=== PATIENT | male | born 1950 | race African-American/Black ===

== ENCOUNTER 2018-07-26 23:33 | Observation (INO) | payer MEDICARE, OTHER ==
[~2018-07-26] VITALS: Ht 167.6 cm; Wt 91.9 kg
--- NOTE | 2018-07-26 23:43 | PHYS DOC ---
Adult General Chief Complaint Chief Complaint: NAUSEA/VOMITING/DIARRHA HPI HPI Patient is a 67 year old male who presents with chest and abdominal pain. Patient states he had sudden onset of sternal chest pain about 1-1/2 hours prior to presentation. He was at rest when the pain started. Pain has been constant since then but has waxed and waned in intensity. Pain does not radiate. There are no aggravating or alleviating factors. Patient also complains of diffuse abdominal pain and distention. He has been having normal bowel movements. No fever, chills, cough. Denies urinary symptoms. He has had some nausea and emesis as well. The pain causes him to feel short of breath. He denies prior history of coronary artery disease. He does have known hypertension. Patient has a history of GERD and he feels the symptoms are similar to prior GERD symptoms. He was previously prescribed some antacid medication but stopped taking it. Review of Systems Review of Systems Constitutional: Denies fever Eyes: Denies change in visual acuity HENT: Denies nasal congestion Respiratory: Denies cough Cardiovascular: No additional information not addressed in HPI GI: + abd pain, nausea, vomiting : Denies dysuria Musculoskeletal: Denies back pain Integument: Denies rash or skin lesions Neurologic: Denies focal neuro complaints All other systems were reviewed and found to be within normal limits, except as documented in this note. Current Medications Current Medications Current Medications Medications (Trade) Dose Ordered Sig/Juana Start Time Stop Time Status Last Admin Dose Admin Acetaminophen (Tylenol) 650 mg PRN Q4HRS PRN 07/27/18 02:00 07/28/18 01:59 Aspirin (Children'S Aspirin) 324 mg 1X ONCE 07/27/18 00:30 07/27/18 00:31 DC 07/27/18 00:16 324 MG Famotidine (Pepcid Vial) 20 mg 1X ONCE 07/27/18 01:00 07/27/18 01:01 DC 07/27/18 01:03 20 MG Morphine Sulfate (Morphine Sulfate) 4 mg PRN Q2HR PRN 07/27/18 02:00 07/28/18 01:59 Multi-Ingredient Mouthwash/Gargle (Gi Cocktail) 20 ml 1X ONCE 07/27/18 00:00 07/27/18 00:08 DC 07/26/18 23:53 20 ML Ondansetron HCl (Zofran) 4 mg PRN Q8HRS PRN 07/27/18 02:00 07/28/18 01:59 Sodium Chloride 500 ml @ 500 mls/hr 1X ONCE 07/27/18 01:30 07/27/18 02:29 DC 07/27/18 01:30 500 MLS/HR Allergies Allergies Allergies Coded Allergies Type Severity Reaction Last Updated Verified No Known Drug Allergies 07/27/18 No Physical Exam Physical Exam Constitutional: Well developed, well nourished, no acute distress, non-toxic appearance HENT: Normocephalic, atraumatic, bilateral external ears normal, oropharynx moist Eyes: PERRLA, EOMI, conjunctiva normal Neck: Normal range of motion, no tenderness Cardiovascular:Heart rate regular rhythm, no murmur Lungs & Thorax: Bilateral breath sounds clear to auscultation Abdomen: Bowel sounds normal, soft Skin: Warm, dry, no erythema Extremities: No edema Neurologic: Alert and oriented X 3 Psychologic: Affect normal Current Patient Data Vital Signs Vital Signs Date Time Temp Pulse Resp B/P (MAP) Pulse Ox O2 Delivery O2 Flow Rate FiO2 07/27/18 01:43 88 18 168/77 (107) 98 Room Air 07/26/18 23:38 97.4 97.4 Lab Values Laboratory Tests Test 07/26/18 23:57 07/27/18 00:35 White Blood Count 10.1 x10^3/uL (4.0-11.0) Red Blood Count 5.71 x10^6/uL (4.30-5.70) H Hemoglobin 12.9 g/dL (13.0-17.5) L Hematocrit 37.1 % (39.0-53.0) L Mean Corpuscular Volume 65 fL (79-100) L Mean Corpuscular Hemoglobin 23 pg (25-35) L Mean Corpuscular Hemoglobin Concent 35 g/dL (31-37) Red Cell Distribution Width 21.9 % (11.5-14.5) H Platelet Count 158 x10^3/uL (140-400) Neutrophils (%) (Auto) 90 % (31-73) H Lymphocytes (%) (Auto) 3 % (24-48) L Monocytes (%) (Auto) 6 % (0-9) Eosinophils (%) (Auto) 1 % (0-3) Basophils (%) (Auto) 1 % (0-3) Neutrophils # (Auto) 9.1 x10^3uL (1.8-7.7) H Lymphocytes # (Auto) 0.3 x10^3/uL (1.0-4.8) L Monocytes # (Auto) 0.6 x10^3/uL (0.0-1.1) Eosinophils # (Auto) 0.1 x10^3/uL (0.0-0.7) Basophils # (Auto) 0.1 x10^3/uL (0.0-0.2) Segmented Neutrophils % 93 % (35-66) H Band Neutrophils % 1 % (0-9) Lymphocytes % 3 % (24-48) L Monocytes % 3 % (0-10) Platelet Estimate Adequate (ADEQUATE) Hypochromasia Mod Anisocytosis Mod Microcytosis Marked Target Cells Occ Prothrombin Time 14.1 SEC (11.7-14.0) H Prothrombin Time INR 1.1 (0.8-1.1) PTT 27 SEC (24-38) Sodium Level 138 mmol/L (136-145) Potassium Level 3.9 mmol/L (3.5-5.1) Chloride Level 100 mmol/L (98-107) Carbon Dioxide Level 27 mmol/L (21-32) Anion Gap 11 (6-14) Blood Urea Nitrogen 21 mg/dL (8-26) Creatinine 2.0 mg/dL (0.7-1.3) H Estimated GFR (Cockcroft-Gault) 33.4 Glucose Level 306 mg/dL (70-99) H Calcium Level 9.6 mg/dL (8.5-10.1) Total Bilirubin 1.1 mg/dL (0.2-1.0) H Direct Bilirubin 0.3 mg/dL (0.0-0.2) H Aspartate Amino Transferase (AST) 12 U/L (15-37) L Alanine Aminotransferase (ALT) 18 U/L (16-63) Alkaline Phosphatase 66 U/L (46-116) Troponin I Quantitative < 0.017 ng/mL (0.000-0.055) RZ-Sgt-M-Type Natriuretic Peptide 11 pg/mL (0-124) Total Protein 8.4 g/dL (6.4-8.2) H Albumin 4.2 g/dL (3.4-5.0) Lipase 171 U/L (73-393) Urine Collection Type Unknown Urine Color Yellow Urine Clarity Clear Urine pH 5.5 Urine Specific [place] 1.020 Urine Protein Negative mg/dL (NEG-TRACE) Urine Glucose (UA) >=1000 mg/dL (NEG) Urine Ketones (Stick) Trace mg/dL (NEG) Urine Blood Negative (NEG) Urine Nitrite Negative (NEG) Urine Bilirubin Negative (NEG) Urine Urobilinogen Dipstick 0.2 mg/dL (0.2 mg/dL) Urine Leukocyte Esterase Negative (NEG) Urine RBC 0 /HPF (0-2) Urine WBC Occ /HPF (0-4) Urine Squamous Epithelial Cells Occ /LPF Urine Bacteria 0 /HPF (0-FEW) Laboratory Tests 07/26/18 23:57 Laboratory Tests 07/26/18 23:57 EKG EKG No STEMI Interpretation Time: 00:01 Radiology/Procedures Radiology/Procedures CXR: no acute findings Course & Med Decision Making Course & Med Decision Making Pertinent Labs and Imaging studies reviewed. (See chart for details) Patient is seen immediately on arrival to his room. Cardiac workup ordered. GI cocktail, ASA, morphine for pain. 00:30: Patient given GI cocktail but does have emesis immediately after. He was given morphine and states pain is improved but he does continue to have pain. Will give IV Pepcid. Workup is still pending. 01:50: All results are reviewed. The patient is noted to have elevated creatinine. I did ask the patient if he has a prior history of this. Patient states he had previously been taken off metformin due to some affect on the kidney. No old values available for comparison in the EMR. Troponin is not elevated. EKG is nonacute. Given the patient's history of diabetes, high blood pressure, and age, he will be admitted for cardiac rule out and observation. Bridge orders are placed. EKGs and troponin will be trended. Of note, the patient was given ASA in the ER. He was also given IV morphine but this did not significantly relieve his pain symptoms. Pain was relieved after patient was given IV pepcid so presentation may be 2/2 GERD. He does have some sx of GERD and prior hx. HEART Score: Slightly suspicious: 1 Normal EK Age > 65: 2 Risk Factors: (DM, HTN): 1 Trop: 0 Total 4-5. Shayla Disclaimer Dragkenneth Disclaimer This electronic medical record was generated, in whole or in part, using a voice recognition dictation system. Departure Departure Disposition: 09 ADMITTED INPATIENT Condition: MELISSA THOMASON DO Jul 26, 2018 23:43
[2018-07-27] MEDS ORDERED: LIDO:MAALOX 1:1 20 ML SINGLE DOSE. PO ONE
[2018-07-27 00:06] LABS: BASO # 0.1 x10^3/uL (0.0-0.2); BASO % 1 % (0-3); EOS # 0.1 x10^3/uL (0.0-0.7); EOS % 1 % (0-3); HEMATOCRIT 37.1 % (39.0-53.0); HEMOGLOBIN 12.9 g/dL (13.0-17.5); LYMPH # 0.3 x10^3/uL (1.0-4.8); LYMPH % 3 % (24-48); MEAN CORPUSCULAR HEMOGLOBIN 23 pg (25-35); MEAN CORPUSCULAR HGB CONC 35 g/dL (31-37); MEAN CORPUSCULAR VOLUME 65 fL (79-100); MONO # 0.6 x10^3/uL (0.0-1.1); MONO % 6 % (0-9); NEUT # 9.1 x10^3uL (1.8-7.7); NEUT % 90 % (31-73); PLATELET COUNT 158 x10^3/uL (140-400); RED BLOOD COUNT 5.71 x10^6/uL (4.30-5.70); RED CELL DISTRIBUTION WIDTH 21.9 % (11.5-14.5); WHITE BLOOD COUNT 10.1 x10^3/uL (4.0-11.0)
[2018-07-27 00:15] LABS: PROTHROMBIN TIME PATIENT 14.1 SEC (11.7-14.0)
[2018-07-27 00:16] LABS: CALCIUM 9.6 mg/dL (8.5-10.1); GFR 33.4; POTASSIUM 3.9 mmol/L (3.5-5.1)
[2018-07-27 00:21] LABS: ALBUMIN 4.2 g/dL (3.4-5.0); DIRECT BILIRUBIN 0.3 mg/dL (0.0-0.2); TOTAL BILIRUBIN 1.1 mg/dL (0.2-1.0); TOTAL PROTEIN 8.4 g/dL (6.4-8.2)
[2018-07-27] MEDS ORDERED: MORPHINE SULFATE 4 MG/ML VIAL. IV ONE (00:30)
[2018-07-27] MEDS ORDERED: ASPIRIN CHEWABLE 81 MG TABLET. PO ONE (00:30)
[2018-07-27 00:39] LABS: % BANDS 1 % (0-9); % LYMPHS 3 % (24-48); % MONOS 3 % (0-10); % SEGS 93 % (35-66); ANISOCYTOSIS MOD; HYPOCHROMIA MOD; MICROCYTOSIS MARKED; PLT ESTIMATE ADEQUATE (ADEQUATE); TARGET CELLS OCC
[2018-07-27 00:46] LABS: BILIRUBIN,URINE NEGATIVE (NEG); CLARITY,URINE CLEAR; COLOR,URINE YELLOW; NITRITE,URINE NEGATIVE (NEG); PH,URINE 5.5; PROTEIN,URINE NEGATIVE (NEG-TRACE); UROBILINOGEN,URINE 0.2 mg/dL (0.2 mg/dL)
[2018-07-27 00:55] LABS: BACTERIA,URINE 0 /HPF (0-FEW); RBC,URINE 0 /HPF (0-2); SQUAMOUS EPITHELIAL CELL,UR OCC /LPF; WBC,URINE OCC /HPF (0-4)
[2018-07-27] MEDS ORDERED: ONDANSETRON PF 4 MG/2 ML VIAL. IV ONE (01:00)
[2018-07-27] MEDS ORDERED: FAMOTIDINE 20 MG/2 ML VIAL IVP ONE (01:00)
[2018-07-27] MEDS ORDERED: IV NORMAL SALINE 500ML BAG 500 ML IV ONE (01:30)
[2018-07-27] MEDS ORDERED: ACETAMINOPHEN 325 MG TABLET. PO PRN ×2 (02:00→10:15)
[2018-07-27] MEDS ORDERED: ONDANSETRON PF 4 MG/2 ML VIAL. IV PRN (02:00)
[2018-07-27] MEDS ORDERED: MORPHINE SULFATE 4 MG/ML VIAL. IV PRN (02:00)
--- NOTE | 2018-07-27 02:42 | EKG ---
[facility] [address] [place] [address] Test Date: 2018-07-26 Test Time: 23:59:42 Pat Name: SHAHNAZ ACOSTA Department: Room: Gender: M Comprehensive Ophthalmologist: : 1950 Requested By: MELISSA MURPHY Order Number: [id number] Reading MD: Hari Phelps Measurements Intervals [place] Rate: 82 P: 37 RI: 158 QRS: 4 QRSD: 76 T: 21 QT: 396 QTc: 465 Interpretive Statements SINUS RHYTHM LEFT ATRIAL ABNORMALITY ABNORMAL ECG No previous ECG available for comparison Electronically Signed On 07-28-2018 9:18:09 DIRECTOR CONTENT MARKETING by Hari Phelps
--- NOTE | 2018-07-27 03:09 | RAD ---
AP portable chest radiograph 07/27/2018 Clinical History: Chest pain. An AP erect portable digital radiograph of the chest was obtained. No previous studies are available for comparison. The cardiac silhouette is borderline enlarged. The thoracic aorta is mildly tortuous. No acute pulmonary infiltrate is seen. No pleural effusion or pneumothorax is noted. Degenerative changes are seen involving the thoracic spine. IMPRESSION: No acute abnormality is seen. Electronically signed by: Scooby Mosqueda MD (07/27/2018 3:06 AM) [id number]
[2018-07-27 03:15] VITALS: BP 140/71
[2018-07-27] MEDS ORDERED: LISI2.5T PO (03:47)
[2018-07-27] MEDS ORDERED: FOLI1TAB16 PO (03:47)
[2018-07-27] MEDS ORDERED: ACET325T9 PO (03:47)
[2018-07-27] MEDS ORDERED: CHOL1TAB PO (03:47)
[2018-07-27] MEDS ORDERED: INSU100V13 SQ (03:47)
[2018-07-27] MEDS ORDERED: INSU100C4 SQ (03:47)
[2018-07-27] MEDS ORDERED: ASPI81TA50 PO (03:47)
[2018-07-27] MEDS ORDERED: TAMS0.4C2 PO (03:50)
[2018-07-27] MEDS ORDERED: AMLO2.5T3 PO (03:52)
[2018-07-27 07:00] VITALS: BP 124/50
--- NOTE | 2018-07-27 07:28 | EKG ---
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 RI6.01 No previous ECG available for comparison Electronically Signed On 07-28-2018 9:38:40 TRUCK DISPATCHER by Hari Phelps
--- NOTE | 2018-07-27 10:06 | PDOC2 ---
CARDIAC CONSULT DATE OF CONSULT Date of Consult DATE: 07/27/18 TIME: 09:46 REASON FOR CONSULT Reason for Consult: Chest pain REFERRING PHYSICIAN Referring Physician: Donovan SOURCE Source: Chart review, Patient HISTORY OF PRESENT ILLNESS HISTORY OF PRESENT ILLNESS This is a pleasant 67 yo male admitted for complains of chest pain, abd pain, vomiting and diarrhea. Reports that he had burger sp burger the night before yesterday. Yesterday throughout the day he started getting nauseated and actually did not eat yesterday. He started vomiting from 9PM and also having diarrhea at least 7x/5x respectively. His chest pain was burning and started after vomiting. No fever or chills. No significant SOA but was diaphoretic while dry heaving. He did not check his BG at all yesterday but at the same did not end up using his insulin. His last stress test was 7 yrs ago and goes to the [place]. He denies any heart disease but certainly has cardiac risk factors including DM, HTN, obesity and CKD. Denies any exertional CP nor LAMBERT. He has a stairs at home to which he does not have difficulty using. PAST MEDICAL HISTORY Cardiovascular: HTN, Hyperlipidemia Pulmonary: No pertinent hx CENTRAL NERVOUS SYSTEM: Other (No pertinent history) GI: No pertinent hx Heme/Onc: Sickle cell trait Hepatobiliary: No pertinent hx Psych: No pertinent hx Musculoskeletal: Osteoarthritis Rheumatologic: No pertinent hx Infectious disease: No pertinent hx Renal/: Chronic renal insuff, Benign prostatic enlarg. Endocrine: Diabetes Dermatology: No pertinent hx PAST SURGICAL HISTORY Past Surgical History: No pertinent history FAMILY HISTORY Family History noncontributory to CV SOCIAL HISTORY Smoke: No ALCOHOL: none Drugs: None Lives: with Family (niece) CURRENT MEDICATIONS CURRENT MEDICATIONS Current Medications Medications (Trade) Dose Ordered Sig/Juana Route PRN Reason Start Time Stop Time Status Last Admin Dose Admin Multi-Ingredient Mouthwash/Gargle (Gi Cocktail) 20 ml 1X ONCE PO 07/27/18 00:00 07/27/18 00:08 DC 07/26/18 23:53 Morphine Sulfate (Morphine Sulfate) 4 mg 1X ONCE IV 07/27/18 00:30 07/27/18 00:31 DC 07/27/18 00:16 Aspirin (Children'S Aspirin) 324 mg 1X ONCE PO 07/27/18 00:30 07/27/18 00:31 DC 07/27/18 00:16 Ondansetron HCl (Zofran) 4 mg 1X ONCE IV 07/27/18 01:00 07/27/18 01:01 DC 07/27/18 01:03 Famotidine (Pepcid Vial) 20 mg 1X ONCE IVP 07/27/18 01:00 07/27/18 01:01 DC 07/27/18 01:03 Sodium Chloride 500 ml @ 500 mls/hr 1X ONCE IV 07/27/18 01:30 07/27/18 02:29 DC 07/27/18 01:30 ALLERGIES ALLERGIES: Coded Allergies: No Known Drug Allergies (Unverified , 07/27/18) ROS Review of System 14 point ROS evaluated with pertinent positives noted per HPI PHYSICAL EXAM General: Alert, Oriented X3, Cooperative, No acute distress HEENT: Atraumatic, Mucous membr. moist/pink Lungs: Clear to auscultation, Normal air movement Heart: Regular rate (SR no ectopies), Other (2/6 systolic murmur to LLs border) Extremities: No cyanosis, No edema Skin: No breakdown, No significant lesion Neuro: Strength at 5/5 X4 ext, Sensation intact Psych/Mental Status: Mental status NL, Mood NL MUSCULOSKELETAL: Osteoarthritic changes both hands VITALS VITALS Vital Signs Date Time Temp Pulse Resp B/P (MAP) Pulse Ox O2 Delivery O2 Flow Rate FiO2 07/27/18 07:45 Room Air 07/27/18 07:00 98.7 61 20 124/50 (74) 98.7 07/27/18 03:15 96 LABS Lab: Laboratory Tests Test 07/26/18 23:57 07/27/18 00:35 07/27/18 03:27 07/27/18 06:15 White Blood Count 10.1 x10^3/uL (4.0-11.0) Red Blood Count 5.71 x10^6/uL (4.30-5.70) Hemoglobin 12.9 g/dL (13.0-17.5) Hematocrit 37.1 % (39.0-53.0) Mean Corpuscular Volume 65 fL (79-100) Mean Corpuscular Hemoglobin 23 pg (25-35) Mean Corpuscular Hemoglobin Concent 35 g/dL (31-37) Red Cell Distribution Width 21.9 % (11.5-14.5) Platelet Count 158 x10^3/uL (140-400) Neutrophils (%) (Auto) 90 % (31-73) Lymphocytes (%) (Auto) 3 % (24-48) Monocytes (%) (Auto) 6 % (0-9) Eosinophils (%) (Auto) 1 % (0-3) Basophils (%) (Auto) 1 % (0-3) Neutrophils # (Auto) 9.1 x10^3uL (1.8-7.7) Lymphocytes # (Auto) 0.3 x10^3/uL (1.0-4.8) Monocytes # (Auto) 0.6 x10^3/uL (0.0-1.1) Eosinophils # (Auto) 0.1 x10^3/uL (0.0-0.7) Basophils # (Auto) 0.1 x10^3/uL (0.0-0.2) Segmented Neutrophils % 93 % (35-66) Band Neutrophils % 1 % (0-9) Lymphocytes % 3 % (24-48) Monocytes % 3 % (0-10) Platelet Estimate Adequate (ADEQUATE) Hypochromasia Mod Anisocytosis Mod Microcytosis Marked Target Cells Occ Prothrombin Time 14.1 SEC (11.7-14.0) Prothromb Time International Ratio 1.1 (0.8-1.1) Activated Partial Thromboplast Time 27 SEC (24-38) Sodium Level 138 mmol/L (136-145) Potassium Level 3.9 mmol/L (3.5-5.1) Chloride Level 100 mmol/L (98-107) Carbon Dioxide Level 27 mmol/L (21-32) Anion Gap 11 (6-14) Blood Urea Nitrogen 21 mg/dL (8-26) Creatinine 2.0 mg/dL (0.7-1.3) Estimated GFR (Cockcroft-Gault) 33.4 Glucose Level 306 mg/dL (70-99) Calcium Level 9.6 mg/dL (8.5-10.1) Total Bilirubin 1.1 mg/dL (0.2-1.0) Direct Bilirubin 0.3 mg/dL (0.0-0.2) Aspartate Amino Transf (AST/SGOT) 12 U/L (15-37) Alanine Aminotransferase (ALT/SGPT) 18 U/L (16-63) Alkaline Phosphatase 66 U/L (46-116) Troponin I Quantitative < 0.017 ng/mL (0.000-0.055) < 0.017 ng/mL (0.000-0.055) TS-Xrg-L-Type Natriuretic Peptide 11 pg/mL (0-124) Total Protein 8.4 g/dL (6.4-8.2) Albumin 4.2 g/dL (3.4-5.0) Lipase 171 U/L (73-393) Urine Collection Type Unknown Urine Color Yellow Urine Clarity Clear Urine pH 5.5 Urine Specific [place] 1.020 Urine Protein Negative mg/dL (NEG-TRACE) Urine Glucose (UA) >=1000 mg/dL (NEG) Urine Ketones (Stick) Trace mg/dL (NEG) Urine Blood Negative (NEG) Urine Nitrite Negative (NEG) Urine Bilirubin Negative (NEG) Urine Urobilinogen Dipstick 0.2 mg/dL (0.2 mg/dL) Urine Leukocyte Esterase Negative (NEG) Urine RBC 0 /HPF (0-2) Urine WBC Occ /HPF (0-4) Urine Squamous Epithelial Cells Occ /LPF Urine Bacteria 0 /HPF (0-FEW) Glucose (Fingerstick) 295 mg/dL (70-99) Test 07/27/18 07:49 Glucose (Fingerstick) 220 mg/dL (70-99) ASSESSMENT/PLAN ASSESSMENT/PLAN 1. Atypical Chest pain: suspect GI. noncardiac. 2. HTN: controlled 3. DM2: indulin dependent 4. Vomiting/diarrhea: food poisoning? 5. CKD: possibly statge 3. Recommendations 1. PPI, further GI w/u per PCP 2. If chest discomfort does continue once GI issues are well resolved then outpt ischemic w/u would be a consideration. 3. Will need statin if none in his regimen pending lipids. JUAN SABA CCO & PRESIDENT Jul 27, 2018 10:06
[2018-07-27 10:24] LABS: CALCIUM 8.8 mg/dL (8.5-10.1); CREATININE 1.9 mg/dL (0.7-1.3); GFR 42.9; POTASSIUM 4.7 mmol/L (3.5-5.1)
[2018-07-27 10:39] VITALS: BP 138/69
[2018-07-27] MEDS ORDERED: LISINOPRIL 5 MG TABLET. PO SCH (11:00)
[2018-07-27] MEDS ORDERED: FOLIC ACID 1 MG TABLET. PO SCH (11:00)
[2018-07-27] MEDS ORDERED: ASPIRIN ENTERIC COATED 81 MG TABLET.DR. PO SCH (11:00)
[2018-07-27] MEDS ORDERED: amLODIPine BESYLATE 2.5 MG TABLET PO SCH (11:00)
[2018-07-27] MEDS ORDERED: TAMSULOSIN 0.4 MG CAP.ER.24H. PO SCH (11:00)
[2018-07-27 11:04] VITALS: BP 138/69
[2018-07-27] MEDS ORDERED: INSULIN LISPRO 300 UNITS/3 ML INSULN.PEN. SQ SCH (12:00)
--- NOTE | 2018-07-27 12:15 | SSS ---
ADMIT DATE: 07/27/2018 CHIEF COMPLAINT: Chest pain, diarrhea, abdominal pain and nausea. HISTORY OF PRESENT ILLNESS: The patient is a pleasant middle-aged male who presented with chest pain, rates it as 7/10. He has some associated nausea. It has been occurring for several days. He increased his home meds, but that was not working. Describes as agonizing. Discussed the case with ER physician. We have admitted the patient for consultation with Cardiology, Dr. Gore's nurse practitioner just saw the patient. He feels this is most likely not cardiac and they are okay with the patient being discharged this afternoon. We plan to discharge with close outpatient followup. PAST MEDICAL HISTORY: Hypertension, hyperlipidemia, sickle cell trait, osteoarthritis, diabetes. ALLERGIES: None. FAMILY HISTORY: Coronary artery disease. SOCIAL HISTORY: Does not drink, smoke or take drugs. MEDICATIONS: Reviewed. He is on 9 home medications including Flomax, amlodipine, lisinopril, Tylenol, NovoLog and folic acid. REVIEW OF SYSTEMS: GENERAL: No history of weight change, weakness or fevers. SKIN: No bruising, hair changes or rashes. EYES: No blurred, double or loss of vision. NOSE AND THROAT: No history of nosebleeds, hoarseness or sore throat. HEART: No history of palpitations, chest pain or shortness of breath on exertion. LUNGS: Denies cough, hemoptysis, wheezing or shortness of breath. GASTROINTESTINAL: Denies changes in appetite, nausea, vomiting, diarrhea or constipation. GENITOURINARY: No history of frequency, urgency, hesitancy or nocturia. NEUROLOGIC: Denies history of numbness, tingling, tremor or weakness. PSYCHIATRIC: No history of panic, anxiety or depression. ENDOCRINE: No history of heat or cold intolerance, polyuria or polydipsia. EXTREMITIES: Denies muscle weakness, joint pain, pain on walking or stiffness. PHYSICAL EXAMINATION: VITAL SIGNS: Temperature afebrile, pulse 91, respirations 20, blood pressure 124/50. GENERAL: He is alert, cooperative. HEART: Normal S1, S2. LUNGS: Clear. ABDOMEN: Soft, positive bowel sounds. EXTREMITIES: Trace edema. SKIN: No rashes. ENDOCRINE: No thyromegaly. LYMPHATICS: No cervical nodes. HEMATOPOIETIC: No bruising. NEUROLOGICAL: He is alert and oriented and psychiatrically stable. LABORATORY DATA: Troponin is 0. Hemoglobin is 12.9. ASSESSMENT AND PLAN: Atypical chest pain with nausea, abdominal pain, diarrhea, suspect possible gastroenteritis with incidental finding of anemia and hyperglycemia. Clinically, he is doing great. We plan to discharge with close outpatient followup. DISPOSITION: Home. ACTIVITY: As tolerated. DIET: Low sodium. MEDICATIONS: Please see MRAD. TOTAL TIME: 31 minutes. VINITA CHRISTIE DO DR: LIDA/jake JOB#: [id number] / [id number]
--- NOTE | 2018-07-27 12:22 | EKG ---
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
[2018-07-27] MEDS ORDERED: PANTOPRAZOLE 40 MG TABLET.DR. PO SCH (13:30)
[2018-07-27] MEDS ORDERED: OMEP40CA5 PO (13:41)
[2018-07-27 14:54] LABS: CHOLESTEROL/HDL RATIO 2.6
[2018-07-28] MEDS ORDERED: VIT K2 PO SCH (09:00)
[2018-07-28] MEDS ORDERED: CHOLECALCIFEROL PO SCH (09:00)
== END 2018-07-27 16:50 | disposition home or self-care (01) ==
LOC: ER 23:33 → 2 NORTH 07-27 01:50
PROVIDERS: ADMIT Internal Medicine; ATTEND Internal Medicine
DX: R07.89 Other chest pain (principal); R11.2 Nausea with vomiting, unspecified; R19.7 Diarrhea, unspecified; K21.9 Gastro-esophageal reflux disease without esophagitis; D57.3 Sickle-cell trait; E66.9 Obesity, unspecified; E78.5 Hyperlipidemia, unspecified; E11.9 Type 2 diabetes mellitus without complications; M19.90 Unspecified osteoarthritis, unspecified site; I10 Essential (primary) hypertension; Z82.49 Family history of ischemic heart disease and other diseases of the circulatory system; Z79.899 Other long term (current) drug therapy
CPT/HCPCS: 36415; 71045; 80048; 80061; 80076; 81001; 82962; 83690; 83880; 84484; 85007; 85025; 85610; 85730; 93005; 96361; 96374; 96375; 99284; G0378; J1815; J2270; J2405; J3490; J7040; G0379